=== PATIENT | male | born 1945 | race Caucasian/White ===

== ENCOUNTER 2017-09-08 16:34 | Emergency (ER) | payer OTHER ==
[~2017-09-08] VITALS: Ht 187.9 cm; Wt 99.8 kg
[~2017-09-08 16:34] MED LIST: AMLODIPINE5 MG PO; CETRA VITE SENI1 TAB PO; COUMADIN5 M2 PO; COUMADIN5 MG PO; FISH OIL 10001000 MG PO; FLOMAX0.4 MG PO; LOVENOX80 MG/0.8 SC; Lovenox80 MG/0.8 SC; PERCOCET 325 MG1 TA7 PO; PRILOSEC20 MG PO; PROSCAR5 MG PO; ZESTRIL20 MG PO; ZITHROMAX Z-PA250 MG PO
[2017-09-08 17:25] LABS: BASO % 0.4 % (0.0-1.0); EOS % 0.4 % (1.0-4.0); HEMATOCRIT 47.3 % (42.0-52.0); HEMOGLOBIN 16.4 g/dl (14.0-18.0); LYMPH # 0.9 10*3/uL (1.3-4.4); LYMPH % 11.4 % (27.0-41.0); MEAN CORPUSCULAR HGB 31.5 pg (27.0-31.0); MEAN CORPUSCULAR HGB CONC 34.7 g/dl (33.0-37.0); MEAN PLATELET VOLUME 11.2 fl (9.6-12.3); MONO # 0.5 10*3/uL (0.1-1.0); MONO % 7.1 % (3.0-9.0); NEUT % 80.3 % (47.0-73.0); PLATELET COUNT AUTOMATED 159 10*3/uL (130-400); RED CELL DISTRI WIDTH 13.2 % (0-14.5); WHITE BLOOD COUNT 7.5 10*3/uL (4.8-10.8)
[2017-09-08 17:33] LABS: ACT PARTIAL THROMBO TIME 24.3 SECONDS (20.8-31.5)
[2017-09-08 17:37] LABS: BUN 17 mg/dl (7-24); CHLORIDE 106 mmol/L (98-107); CREATININE 1.14 mg/dL (0.70-1.30); POTASSIUM 4.1 mmol/L (3.5-5.1); SODIUM 139 mmol/L (136-145)
[2017-09-08 17:55] LABS: BILIRUBIN NEGATIVE (NEGATIVE); BLOOD 3+ (NEGATIVE); CLARITY CLOUDY (CLEAR); COLOR YELLOW (YELLOW); GLUCOSE NEGATIVE (NEGATIVE); KETONE 2+ (NEGATIVE); LEUKO ESTERASE 3+ (NEGATIVE); NITRITE NEGATIVE (NEGATIVE); PH 5.5 (5.0-9.0); SPECIFIC GRAVITY >= 1.030 (1.005-1.030)
[2017-09-08 18:03] LABS: WBC TNTC wbc/hpf (0-5)
[2017-09-08] MEDS ORDERED: SEPTDS PO (18:24)
[2017-09-08] MEDS ORDERED: PYRIDIUM200 M1 PO (18:24)
== END 2017-09-08 19:31 | disposition home or self-care (01) ==
LOC: ED 16:34
PROVIDERS: Emergency Medicine
DX: N30.01 Acute cystitis with hematuria (principal); R50.9 Fever, unspecified; Z79.899 Other long term (current) drug therapy; Z86.718 Personal history of other venous thrombosis and embolism

== ENCOUNTER 2017-11-26 10:50 | Emergency (ER) | payer OTHER ==
[~2017-11-26] VITALS: Ht 187.9 cm; Wt 99.8 kg
[~2017-11-26 10:50] MED LIST changes: +PYRIDIUM200 M1 PO; +SEPTDS PO
[2017-11-26 11:25] LABS: BASO % 0.4 % (0.0-1.0); HEMATOCRIT 46.3 % (42.0-52.0); HEMOGLOBIN 15.8 g/dl (14.0-18.0); LYMPH # 0.7 10*3/uL (1.3-4.4); LYMPH % 6.2 % (27.0-41.0); MEAN CELL VOLUME 89.6 fl (80.0-94.0); MEAN CORPUSCULAR HGB 30.6 pg (27.0-31.0); MEAN CORPUSCULAR HGB CONC 34.1 g/dl (33.0-37.0); MEAN PLATELET VOLUME 12.2 fl (9.6-12.3); MONO # 0.6 10*3/uL (0.1-1.0); MONO % 5.3 % (3.0-9.0); NEUT # 9.7 10*3/uL (2.3-7.9); NEUT % 87.7 % (47.0-73.0); PLATELET COUNT AUTOMATED 158 10*3/uL (130-400); RED BLOOD COUNT 5.17 10*6/uL (4.50-5.90); RED CELL DISTRI WIDTH 13.2 % (0-14.5); WHITE BLOOD COUNT 11.1 10*3/uL (4.8-10.8)
[2017-11-26 11:34] LABS: ACT PARTIAL THROMBO TIME 23.9 SECONDS (20.8-31.5)
[2017-11-26 11:40] LABS: ALBUMIN 3.7 gm/dl (3.1-4.5); ALKALINE PHOSPHATASE 65 U/L (45-117); BUN 20 mg/dl (7-24); CHLORIDE 105 mmol/L (98-107); CREATININE 1.21 mg/dL (0.70-1.30); LIPASE 138 U/L (73-393); POTASSIUM 3.9 mmol/L (3.5-5.1); SGOT/AST 13 IU/L (3-35); SGPT/ALT 29 U/L (12-78); SODIUM 139 mmol/L (136-145)
[2017-11-26 12:21] LABS: BILIRUBIN 2+ (NEGATIVE); BLOOD 3+ (NEGATIVE); CLARITY CLOUDY (CLEAR); COLOR BROWN (YELLOW); GLUCOSE NEGATIVE (NEGATIVE); KETONE TRACE (NEGATIVE); LEUKO ESTERASE 1+ (NEGATIVE); NITRITE POSITIVE (NEGATIVE); SPECIFIC GRAVITY >= 1.030 (1.005-1.030)
[2017-11-26 12:34] LABS: CALCIUM OXALATE CRYSTALS 2+; RBC TNTC rbc/hpf (0-2); WBC 41-50 wbc/hpf (0-5)
[2017-11-26 12:35] LABS: BACTERIA 2+
[2017-11-26] MEDS ORDERED: ELIQUIS5 M1 PO (14:31)
[2017-11-26] MEDS ORDERED: NORVASC5 MG PO (14:31)
[2017-11-26] MEDS ORDERED: TAMSULOSIN HCL0.4 MG PO (14:31)
[2017-11-26] MEDS ORDERED: FOSAMAX70 M1 PO (14:32)
[2017-11-26] MEDS ORDERED: LATANOPROST 2.2.5 ML OP (14:32)
[2017-11-26] MEDS ORDERED: FINASTERIDE5 M1 PO (14:33)
[2017-11-26] MEDS ORDERED: Synthroid,Levo25 MCG PO (14:33)
[2017-11-26] MEDS ORDERED: VIAGRA50 MG PO (14:34)
[2017-11-26] MEDS ORDERED: LISINOPRIL20 MG PO (14:34)
== END 2017-11-26 23:40 | disposition short-term general hospital (02) ==
LOC: ED 10:50
PROVIDERS: Emergency Medicine
DX: N20.0 Calculus of kidney (principal); N23 Unspecified renal colic; Z86.718 Personal history of other venous thrombosis and embolism; Z79.899 Other long term (current) drug therapy